=== PATIENT | female | born 1985 | race Caucasian/White ===

== ENCOUNTER 2019-05-13 19:04 | Emergency (ER) | payer MEDICAID ==
[2019-05-13] MEDS: DIPHENHYDRAMINE 50 MG INJ IM (21:06)
[2019-05-13] MEDS: predniSONE 20 MG TAB PO (21:06)
== END 2019-05-13 21:36 | disposition home or self-care (01) ==
LOC: FTE 19:04
DX: R21 Rash and other nonspecific skin eruption (principal)
CPT/HCPCS: 96372; 99284-25

== ENCOUNTER 2019-06-22 12:10 | Emergency (ER) | payer MEDICAID ==
[2019-06-22] MEDS: DIPHENHYDRAMINE 25 MG CAP PO (13:43)
[2019-06-22] MEDS: predniSONE 20 MG TAB PO (13:43)
== END 2019-06-22 14:21 | disposition home or self-care (01) ==
LOC: FTE 12:10
DX: L29.9 Pruritus, unspecified (principal)
CPT/HCPCS: 99283; J7512